=== PATIENT | female | born 1970 | race Caucasian/White ===

== ENCOUNTER 2016-10-27 12:42 | Emergency (ER) | payer BC ==
[2016-10-27] MEDS ORDERED: Albuterol/Ipratropium 3.0-0.5 MG/3 ML Neb Soln NEB ONE (13:00)
[2016-10-27] MEDS ORDERED: Sodium Chloride 0.9% 1,000 ML IV ONE (13:00)
--- NOTE | 2016-10-27 13:34 | EDM.PDOC ---
ED HISTORY OF PRESENT ILLNESS - General Chief Complaint: Respiratory Problem Stated Complaint: COUGH Time Seen by Provider: 10/27/16 12:55 Source of Information: Reports: Patient History Limitations: Reports: No limitations - History of Present Illness INITIAL COMMENTS - FREE TEXT/NARRATIVE: History of present illness: [36-year-old female coming in with a very complex history of complaining of coughing. Patient indicates she has some antibiotic nasal spray that causes discharged but now she is coughing to the point that it is making her vomit. She indicates the emesis is a mixture of this medicine as well as questionable sinus drainage. Patient says she can't take a deep breath or talk protectively without having personal coughing. Patient indicates she had long-term steroid treatment and that does have been discontinued and she feels this could be a rebound issue and was instructed by providers treating her the steroids to 4 to the ED if she should start having these type of symptoms.] Review of systems: As per history of present illness and below otherwise all systems reviewed and negative. Past medical history: As per history of present illness and as reviewed below otherwise noncontributory. Surgical history: As per history of present illness and as reviewed below otherwise noncontributory. Social history: No reported history of drug or alcohol abuse. Family history: As per history of present illness and as reviewed below otherwise noncontributory. Physical exam: HEENT: Atraumatic, normocephalic, pupils reactive, negative for conjunctival pallor or scleral icterus, mucous membranes moist, throat clear, neck supple, nontender, trachea midline. Lungs: Clear to auscultation but with poor air movement despite being equal bilaterally, chest nontender. Heart: S1S2, regular, negative for clicks, rubs, or JVD. Abdomen: Soft, nondistended, nontender. Negative for masses or hepatosplenomegaly. Negative for costovertebral tenderness. Pelvis: Stable nontender. Genitourinary: Deferred. Rectal: Deferred. Extremities: Atraumatic, negative for cords or calf pain. Neurovascular unremarkable. Neuro: Awake, alert, oriented. Cranial nerves II through XII unremarkable. Cerebellum unremarkable. Motor and sensory unremarkable throughout. Exam nonfocal. Patient unable to tolerate someone performing flu test on her and was unable to do it on herself declined testing indicating she did not feel she had the flu. Did have increased air movement after Duo-neb but did not have any coughing sensation patient indicates that she does not feel this is bronchitis and declines to be treated for bronchitis. Diagnostics: [Flu AB, chest x-ray] Therapeutics: [Duo neb] Impression: [Cough] Plan: [Tessaldaphne Werner followup with PCP] Definitive disposition and diagnosis as appropriate pending reevaluation and review of above. - Related Data Allergies/ADRs: Allergies Allergy/AdvReac Type Severity Reaction Status Date / Time acetaminophen Allergy Other Verified 10/27/16 13:05 ibuprofen Allergy Other Verified 10/27/16 13:05 Penicillins Allergy Anaphylactic Verified 10/27/16 12:54 Shock Home Meds: Home Meds Benzonatate [Tessalon Perles] 200 mg PO TID #45 cap 10/27/16 [Rx] Insulin Aspart [Novolog Flexpen] 1 dose SQ ASDIRECTED 10/27/16 [History] Insulin Glarg,Human.Rec.Analog [Lantus] 40 units SQ BEDTIME 10/27/16 [History] Minocycline [Minocin] 50 mg PO BID 10/27/16 [History] Topiramate [Trokendi Xr] 100 mg PO BID 10/27/16 [History] ED ROS GENERAL - Review of Systems Review Of Systems: See Below (See history of present illness) ED EXAM, GENERAL - Physical Exam Exam: See Below (History of present illness) Course - Vital Signs Last Recorded V/S: Last Vital Signs Temp 36.4 C 10/27/16 12:52 Pulse 80 10/27/16 14:47 Resp 20 10/27/16 14:47 BP 145/75 H 10/27/16 14:47 Pulse Ox 97 10/27/16 14:47 - Orders/Labs/Meds Orders: Active Orders 24 hr Category Date Time Status RT Aerosol Therapy [RC] ASDIRECTED Care 10/27/16 13:00 Active Chest 2V [CR] Stat Exams 10/27/16 13:00 Taken INFLUENZA A+B AG SCREEN [RM] Stat Lab 10/27/16 13:37 Uncollected Labs: Laboratory Tests 10/27/16 10/27/16 Range/Units 13:19 13:19 WBC 3.35 L (4.0-11.0) K/uL RBC 5.13 (4.30-5.90) M/uL Hgb 14.1 (12.0-16.0) g/dL Hct 43.6 (36.0-46.0) % MCV 85.0 (80.0-98.0) fL MCH 27.5 (27.0-32.0) pg MCHC 32.3 (31.0-37.0) g/dL RDW Std Deviation 40.7 (28.0-62.0) fl RDW Coeff of Angle 13 (11.0-15.0) % Plt Count 193 (150-400) K/uL MPV 10.40 (7.40-12.00) fL Neut % (Auto) 51.4 (48.0-80.0) % Lymph % (Auto) 32.8 (16.0-40.0) % [place] % (Auto) 12.2 (0.0-15.0) % Eos % (Auto) 2.4 (0.0-7.0) % Baso % (Auto) 1.2 (0.0-1.5) % Neut # (Auto) 1.7 (1.4-5.7) K/uL Lymph # (Auto) 1.1 (0.6-2.4) K/uL [place] # (Auto) 0.4 (0.0-0.8) K/uL Eos # (Auto) 0.1 (0.0-0.7) K/uL Baso # (Auto) 0.0 (0.0-0.1) K/uL Nucleated RBC % 0.0 /100WBC Nucleated RBCs # 0 K/uL Sodium 140 (136-146) mmol/L Potassium 4.1 (3.5-5.1) mmol/L Chloride 114 H (98-110) mmol/L Carbon Dioxide 18 L (21-31) mmol/L BUN 12 (6.0-23.0) mg/dL Creatinine 0.9 (0.6-1.5) mg/dL Est Cr Clr Drug Dosing 80.76 mL/min Estimated GFR (MDRD) > 60.0 ml/min Glucose 155 H (60-110) mg/dL Calcium 8.5 L (8.8-10.8) mg/dL Total Bilirubin 0.4 (0.1-1.5) mg/dL AST 15 (5-40) IU/L ALT 20 (8-54) IU/L Alkaline Phosphatase 97 (40-150) Total Protein 6.8 (6.0-8.0) g/dL Albumin 3.8 (3.5-5.0) g/dL Globulin 3.0 (2.0-3.5) g/dL Albumin/Globulin Ratio 1.3 (1.3-2.8) Meds: Medications Discontinued Medications Generic Name Dose Route Start Last Admin Trade Name Arlette PRN Reason Stop Dose Admin Albuterol/Ipratropium 3 ml 10/27/16 13:00 10/27/16 13:25 Duoneb 3.0-0.5 Mg/3 Ml NEB 10/27/16 13:01 3 ml ONETIME ONE Administration Sodium Chloride 1,000 mls @ 999 mls/hr 10/27/16 13:00 10/27/16 13:46 Normal Saline IV 10/27/16 14:00 999 mls/hr STAT ONE Administration Departure - Departure Time of Disposition: 15:40 Disposition: Home, Self-Care 01 Condition: good Clinical Impression: Cough Referrals: PCP,None [Primary Care Provider] - Yanni Crawford PA [Physician [employer] Systems Engineer] - Forms: ED Department Discharge Additional Instructions: The following information is given to patients seen in the emergency department who are being discharged to home. This information is to outline your options for follow-up care. We provide all patients seen in our emergency department with a follow-up referral. The need for follow-up, as well as the timing and circumstances, are variable depending upon the specifics of your emergency department visit. If you don't have a primary care physician on staff, we will provide you with a referral. We always advise you to contact your personal physician following an emergency department visit to inform them of the circumstance of the visit and for follow-up with them and/or the need for any referrals to a consulting specialist. The emergency department will also refer you to a specialist when appropriate. This referral assures that you have the opportunity for follow-up care with a specialist. All of these measure are taken in an effort to provide you with optimal care, which includes your follow-up. Under all circumstances we always encourage you to contact your private physician who remains a resource for coordinating your care. When calling for follow-up care, please make the office aware that this follow-up is from your recent emergency room visit. If for any reason you are refused follow-up, please contact the [facility] Emergency Department at and asked to speak to the emergency department charge nurse. Take medication as directed Followup with primary care provider as discussed Return to ED as needed as discussed - My Orders Last 24 Hours: My Active Orders 10/27/16 13:00 RT Aerosol Therapy [RC] ASDIRECTED Chest 2V [CR] Stat 10/27/16 13:37 INFLUENZA A+B AG SCREEN [RM] Stat - Assessment/Plan Last 24 Hours: My Active Orders 10/27/16 13:00 RT Aerosol Therapy [RC] ASDIRECTED Chest 2V [CR] Stat 10/27/16 13:37 INFLUENZA A+B AG SCREEN [RM] Stat
[2016-10-27 13:51] LABS: CHLORIDE,CL 114 mmol/L (98-110); SODIUM,NA 140 mmol/L (136-146)
[2016-10-27 16:25] VITALS: BP 148/86
--- NOTE | 2016-10-27 16:32 | CR ---
EXAM DATE: 10/27/16 PATIENT'S AGE: 46 Patient: WINTER REES Facility: [place], [place] Site . Site : 1970 Study: XRay Chest [id number]/10/2017 2:04:10 PM Ordering Physician: Doctor Stanton Final Report: INDICATION: Started coughing up fluid 3 days ago, had shortness of breath. Believes it could be a result of steroids she has been taking. CHEST, PA AND LATERAL Upright PA and lateral radiographs of the chest were performed. Comparison: No previous studies are currently available for comparison. The lungs appear clear and there are no pleural effusions. Heart size and pulmonary vasculature appear normal. Visualized bones show no significant findings. IMPRESSION: No acute intrathoracic abnormality identified. ROSSI ZAPIEN MD [employer] Dictated by: Carlos Zapien MD @ 10/27/2016 14:27:53 (Electronic Signature) Report Signed by Proxy and Original Signed Document filed in the Medical Record. MTDD
== END 2016-10-27 16:22 | disposition home or self-care (01) ==
LOC: MW.ED 12:42
DX: R05 Cough (principal)
CPT/HCPCS: 36415; 71020; 80053; 85025; 94664; 96360; 99285; J7040; 99284

== ENCOUNTER → 2016-11-12 | Outpatient (CLI) | payer BC ==
--- NOTE | 2016-11-12 17:34 | CT ---
EXAM DATE: 11/12/16 PATIENT'S AGE: 46 Patient: WINTER REES Facility: [place], [place] Site . Site : 1970 Study: CT Facial [id number]/26/2017 2:43:57 PM Ordering Physician: Kym Banda Final Report: INDICATION: chronic sinusitis CT FACE/SINUSES WITHOUT CONTRAST TECHNIQUE: Multidetector axial CT imaging was performed through the face and paranasal sinuses without contrast. Coronal and sagittal reconstructions were also generated. FINDINGS: There are postoperative defects in the medial carrillo of the maxillary sinuses bilaterally and there have been previous bilateral partial ethmoidectomies. There is moderate mucosal thickening in the maxillary sinuses bilaterally, greatest inferiorly, and a question of a small amount of posteriorly layering fluid in the maxillary sinuses, consistent with sinusitis. The other paranasal sinuses appear normally aerated. No significant deviation of the nasal septum is noted. No bony erosions or fractures are identified. The orbits and their contents are unremarkable. Temporomandibular joints and included mandible are within normal limits. Mastoid air cells are normally aerated. IMPRESSION: 1. Postoperative changes in the paranasal sinuses including defects in the medial carrillo of the maxillary sinuses and previous partial ethmoidectomies. 2. Bilateral maxillary sinusitis. ROSSI ZAPIEN MD [employer] Dictated by Carlos Zapien MD @ 11/12/2016 3:05:52 PM Dictated by: Carlos Zapien MD @ 11/12/2016 15:06:10 (Electronic Signature) Report Signed by Proxy and Original Signed Document filed in the Medical Record. [facility]
== END ==
LOC: MW.DI 14:16
PROVIDERS: ATTEND Nurse Practitioner Family
DX: J32.9 Chronic sinusitis, unspecified (principal); Z98.890 Other specified postprocedural states; J32.0 Chronic maxillary sinusitis
CPT/HCPCS: 70486; 70486-26

== ENCOUNTER → 2016-11-20 | Outpatient (CLI) | payer BC ==
--- NOTE | 2016-11-20 15:49 | CR ---
EXAMINATION: Right calcaneus HISTORY: Pain COMPARISON: None TECHNIQUE: 2 views FINDINGS/IMPRESSION: There is no acute osseous abnormality, dislocation, or fracture. Bone mineraliz ation and joint spaces appear preserved. There is a prominent fused os trigonum which could suggest posterior impingement. Small Achilles insertional enthesophyte.
== END | disposition home or self-care (01) ==
LOC: MW.CHFP 13:23
PROVIDERS: ATTEND Nurse Practitioner Family
DX: M79.671 Pain in right foot (principal); Q68.8 Other specified congenital musculoskeletal deformities; M77.51 Other enthesopathy of right foot and ankle
CPT/HCPCS: 73650-26-RT; 73650-RT

== ENCOUNTER 2019-03-26 21:17 | Observation (INO) | payer BC ==
[2019-03-26] MEDS ORDERED: Sodium Chloride 0.9% 10 ML Syringe FLUSH PRN (21:19)
[2019-03-26] MEDS ORDERED: Sodium Chloride 0.9% 2.5 ML Syringe FLUSH PRN (21:19)
[2019-03-26] MEDS ORDERED: Ondansetron 4 MG/2 ML SDV IVPUSH ONE (21:40)
[2019-03-26] MEDS ORDERED: Sodium Chloride 0.9% 1,000 ML IV ONE (21:40)
--- NOTE | 2019-03-26 21:40 | EDM.PDOC ---
ED HPI GENERAL MEDICAL PROBLEM - General Chief Complaint: Abdominal Pain Stated Complaint: ABD PAIN Time Seen by Provider: 03/26/19 21:29 Source of Information: Reports: Patient History Limitations: Reports: No Limitations - History of Present Illness INITIAL COMMENTS - FREE TEXT/NARRATIVE: HISTORY AND PHYSICAL: History of present illness: Patient is a 49-year-old female who presents to the emergency room with complaints of upper abdominal pain, right sided flank pain, nausea, vomiting and white colored stools. She states last evening she noticed some abdominal pain that has progressively gotten worse. This morning she started to develop nausea which has now progressed to vomiting. This evening she has had white colored stools (otherwise normal consistency). She has had a cholecystectomy. States when the procedure was done with a "nicked my pancreas" and is concerned she may have pancreatitis. Denies any previous history of hepatitis, alcohol use or drug abuse. Patient denies any fever, chills, headache, change in vision, syncope or near syncope. Denies any chest pain, back pain, shortness of breath or cough. Denies any diarrhea, constipation or dysuria. Has not noted any blood in urine or stool. Patient has been eating and drinking appropriately. Review of systems: As per history of present illness and below otherwise all systems reviewed and negative. Past medical history: As per history of present illness and as reviewed below otherwise noncontributory. Surgical history: As per history of present illness and as reviewed below otherwise noncontributory. Social history: See social history for further information Family history: As per history of present illness and as reviewed below otherwise noncontributory. Physical exam: General: Well-developed and well-nourished 49-year-old female. Alert and oriented. Nontoxic appearing and in no acute distress. HEENT: Atraumatic, normocephalic, pupils equal and reactive bilaterally, negative for conjunctival pallor or scleral icterus, mucous membranes moist, trachea midline. No drooling or trismus noted. No meningeal signs. No hot potato voice noted. Lungs: Clear to auscultation, breath sounds equal bilaterally, chest nontender. Heart: S1S2, regular rate and rhythm without overt murmur Abdomen: Soft, slightly distended, tenderness to the right upper and left upper quadrants. Negative for masses or hepatosplenomegaly. Right sided costovertebral tenderness. Pelvis: Stable nontender. Skin: Intact, warm, dry. No lesions or rashes noted. Extremities: Atraumatic, moves all extremities per self without difficulty or deficits, negative for cords or calf pain. Neurovascular unremarkable. Neuro: Awake, alert, oriented. Cranial nerves II through XII unremarkable. Cerebellum unremarkable. Motor and sensory unremarkable throughout. Exam nonfocal. Notes: Patient's urine does show a UTI. She has allergies to penicillin, therefore gave Cipro IV. Ultrasound shows cholecystectomy. No bile duct dilation. Patient continues to have the flank pain. Vital signs remain stable. Dr. Massey, hospitalist, was consulted on this case is agreeable to admit this patient to observation for further care and management. Patient is aware of diagnostics and agreeable for admission. We'll continue to monitor. Diagnostics: CBC, CMP, Lipase, UA, US abd/pelvis Therapeutics: IV fluids, Zofran Impression: Pyelonephritis Plan: Observation admission Definitive disposition and diagnosis as appropriate pending reevaluation and review of above. Abdomen Pain Score (Numeric/FACES): 8 - Related Data Allergies Allergy/AdvReac Type Severity Reaction Status Date / Time acetaminophen Allergy Other Verified 03/26/19 21:25 ibuprofen Allergy Other Verified 03/26/19 21:25 mushroom Allergy Hives Verified 03/26/19 21:25 Penicillins Allergy Anaphylactic Verified 03/26/19 21:25 Shock Home Meds: Home Meds Celecoxib [CeleBREX] 200 mg PO DAILY 03/26/19 [History] Insulin Glarg,Human.Rec.Analog [Lantus Solostar] 40 units SQ DAILY 03/26/19 [ History] Insulin Glulisine [Apidra Solostar] 8 - 14 unit SQ TID 03/26/19 [History] Lisinopril 1 tab PO DAILY 03/26/19 [History] atorvaSTATin [Lipitor] 10 mg PO BEDTIME 03/26/19 [History] Past Medical History HEENT History: Reports: None Cardiovascular History: Reports: None Respiratory History: Reports: None Gastrointestinal History: Reports: Cholelithiasis, Pancreatitis Genitourinary History: Reports: None 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: Musculoskeletal History: Reports: None Neurological History: Reports: Migraines Psychiatric History: Reports: None Endocrine/Metabolic History: Reports: Diabetes, Type I Other Endocrine/Metabolic History: chemically induced diabetes Hematologic History: Reports: None Immunologic History: Reports: None Oncologic (Cancer) History: Reports: None Dermatologic History: Reports: None - Infectious Disease History Infectious Disease History: Reports: None - Past Surgical History HEENT Surgical History: Reports: Myringotomy w Tube(s) GI Surgical History: Reports: Cholecystectomy Female Surgical History: Reports: None Social & Family History - Family History Family Medical History: Noncontributory - Tobacco Use Smoking Status *Q: Never Smoker - Caffeine Use Caffeine Use: Reports: Coffee - Recreational Drug Use Recreational Drug Use: No ED ROS GENERAL - Review of Systems Review Of Systems: ROS reveals no pertinent complaints other than HPI. ED EXAM, GI/ABD - Physical Exam Exam: See Below (See dictation) Course - Vital Signs Last Recorded V/S: Last Vital Signs Temp 97 F 03/26/19 21:25 Pulse 86 03/26/19 23:28 Resp 16 03/26/19 23:28 BP 156/80 H 03/26/19 22:36 Pulse Ox 92 L 03/26/19 23:28 - Orders/Labs/Meds Orders: Active Orders 24 hr Category Date Time Status Admission Status [Patient Status] [ADT] Stat ADT 03/26/19 23:33 Ordered CULTURE URINE [RM] Stat Lab 03/26/19 21:43 Received Sodium Chloride 0.9% [Saline Flush] Med 03/26/19 21:19 Active 10 ml FLUSH ASDIRECTED PRN Sodium Chloride 0.9% [Saline Flush] Med 03/26/19 21:19 Active 2.5 ml FLUSH ASDIRECTED PRN Saline Lock Insert [OM.PC] Stat Oth 03/26/19 21:19 Ordered Medication Orders Sodium Chloride (Saline Flush) 10 ml FLUSH ASDIRECTED PRN PRN Reason: Keep Vein Open Last Admin: 03/26/19 21:49 Dose: 10 ml Sodium Chloride (Saline Flush) 2.5 ml FLUSH ASDIRECTED PRN PRN Reason: Keep Vein Open Last Admin: 03/26/19 21:50 Dose: 2.5 ml Labs: Laboratory Tests 03/26/19 03/26/19 03/26/19 Range/Units 21:40 21:40 21:43 WBC 8.81 (4.0-11.0) K/uL RBC 4.76 (4.30-5.90) M/uL Hgb 13.4 (12.0-16.0) g/dL Hct 40.9 (36.0-46.0) % MCV 85.9 (80.0-98.0) fL MCH 28.2 (27.0-32.0) pg MCHC 32.8 (31.0-37.0) g/dL RDW Std Deviation 42.8 (28.0-62.0) fl RDW Coeff of Angle 14 (11.0-15.0) % Plt Count 218 (150-400) K/uL MPV 10.70 (7.40-12.00) fL Neut % (Auto) 67.5 (48.0-80.0) % Lymph % (Auto) 22.1 (16.0-40.0) % [place] % (Auto) 7.9 (0.0-15.0) % Eos % (Auto) 2.0 (0.0-7.0) % Baso % (Auto) 0.5 (0.0-1.5) % Neut # (Auto) 5.9 H (1.4-5.7) K/uL Lymph # (Auto) 2.0 (0.6-2.4) K/uL [place] # (Auto) 0.7 (0.0-0.8) K/uL Eos # (Auto) 0.2 (0.0-0.7) K/uL Baso # (Auto) 0.0 (0.0-0.1) K/uL Nucleated RBC % 0.0 /100WBC Nucleated RBCs # 0 K/uL Sodium 144 (136-145) mmol/L Potassium 3.9 (3.5-5.1) mmol/L Chloride 108 H (98-107) mmol/L Carbon Dioxide 29.0 (21.0-32.0) mmol/L BUN 13 (7.0-18.0) mg/dL Creatinine 1.0 (0.6-1.0) mg/dL Est Cr Clr Drug Dosing 70.34 mL/min Estimated GFR (MDRD) 58.7 ml/min Glucose 185 H (74-106) mg/dL Calcium 9.3 (8.5-10.1) mg/dL Total Bilirubin 0.2 (0.2-1.0) mg/dL AST 11 L (15-37) IU/L ALT 26 (14-63) IU/L Alkaline Phosphatase 86 (46-116) U/L Total Protein 6.0 L (6.4-8.2) g/dL Albumin 3.2 L (3.4-5.0) g/dL Globulin 2.8 (2.6-4.0) g/dL Albumin/Globulin Ratio 1.1 (0.9-1.6) Lipase 57 L (73-393) U/L Urine Color YELLOW Urine Appearance CLOUDY Urine pH 5.5 (5.0-8.0) Ur Specific [place] >= 1.030 (1.001-1.035) Urine Protein 30 H (NEGATIVE) mg/dL Urine Glucose (UA) 100 H (NEGATIVE) mg/dL Urine Ketones TRACE H (NEGATIVE) mg/dL Urine Occult Blood LARGE H (NEGATIVE) Urine Nitrite POSITIVE H (NEGATIVE) Urine Bilirubin NEGATIVE (NEGATIVE) Urine Urobilinogen 0.2 (<2.0) EU/dL Ur Leukocyte Esterase TRACE H (NEGATIVE) Urine RBC 10-15 (0-2/HPF) Urine WBC 14-20 (0-5/HPF) Ur Epithelial Cells MODERATE (NONE-FEW) Calcium Oxalate Crystal MANY (NEGATIVE) Urine Bacteria 2+ H (NEGATIVE) Urine Mucus LIGHT (NONE-MOD) Meds: Medications Generic Name Dose Route Start Last Admin Trade Name Freamanda PRN Reason Stop Dose Admin Sodium Chloride 10 ml 03/26/19 21:19 03/26/19 21:49 Saline Flush FLUSH 10 ml ASDIRECTED PRN Administration Keep Vein Open Sodium Chloride 2.5 ml 03/26/19 21:19 03/26/19 21:50 Saline Flush FLUSH 2.5 ml ASDIRECTED PRN Administration Keep Vein Open Discontinued Medications Generic Name Dose Route Start Last Admin Trade Name Freq PRN Reason Stop Dose Admin Sodium Chloride 1,000 mls @ 999 mls/hr 03/26/19 21:40 03/26/19 21:49 Normal Saline IV 03/26/19 22:40 999 mls/hr STAT ONE Administration Ciprofloxacin/Dextrose 400 mg/ 200 mls @ 200 mls/hr 03/26/19 22:25 03/26/19 22:37 Premix IV 03/26/19 23:24 200 mls/hr NOW STA Administration Morphine Sulfate 2 mg 03/26/19 22:42 03/26/19 22:45 Morphine IVPUSH 03/26/19 22:43 2 mg ONETIME ONE Administration Ondansetron HCl 4 mg 03/26/19 21:40 03/26/19 21:49 Zofran IVPUSH 03/26/19 21:41 4 mg ONETIME ONE Administration Departure - Departure Time of Disposition: 23:35 Disposition: Refer to Observation Clinical Impression: Pyelonephritis - Discharge Information Referrals: Shannan Rothmna DO [Primary Care Provider] - Forms: ED Department Discharge - My Orders Last 24 Hours: My Active Orders 03/26/19 21:19 Sodium Chloride 0.9% [Saline Flush] 10 ml FLUSH ASDIRECTED PRN Sodium Chloride 0.9% [Saline Flush] 2.5 ml FLUSH ASDIRECTED PRN Saline Lock Insert [OM.PC] Stat 03/26/19 21:43 CULTURE URINE [RM] Stat 03/26/19 23:33 Admission Status [Patient Status] [ADT] Stat - Assessment/Plan Last 24 Hours: My Active Orders 03/26/19 21:19 Sodium Chloride 0.9% [Saline Flush] 10 ml FLUSH ASDIRECTED PRN Sodium Chloride 0.9% [Saline Flush] 2.5 ml FLUSH ASDIRECTED PRN Saline Lock Insert [OM.PC] Stat 03/26/19 21:43 CULTURE URINE [RM] Stat 03/26/19 23:33 Admission Status [Patient Status] [ADT] Stat
[2019-03-26 22:08] LABS: POTASSIUM,K 3.9 mmol/L (3.5-5.1)
[2019-03-26] MEDS ORDERED: Ciprofloxacin in D5W 400 MG in Premix Bag 1 BAG IV STA ×2 (22:25)
[2019-03-26] MEDS ORDERED: Morphine 2 MG/ML Syringe IVPUSH ONE (22:42)
--- NOTE | 2019-03-26 23:19 | US ---
INDICATION: Pain. TECHNIQUE: Transabdominal imaging with attention to the right upper quadrant. COMPARISON: None. FINDINGS: Pancreas obscured by bowel gas. Right kidney is normal size. No hydronephrosis. Visualized portions of the liver are unremarkable. Gallbladder is not visualized consistent with the patient`s history of a cholecystectomy. No abnormal bile duct dilatation. The CBD measures 3 mm. IMPRESSION: 1. Cholecystectomy. 2. No bile duct dilatation. Dictated by Raman Porter MD @ 03/26/2019 11:17:00 PM Dictated by: Raman Porter MD @ 03/26/2019 23:17:29 (Electronically Signed)
[2019-03-27] MEDS ORDERED: 50% Dextrose in Water 50 ML Syringe IVPUSH ONE (00:39)
[2019-03-27] MEDS ORDERED: Sodium Chloride 0.9% 1,000 ML IV SCH (03:30)
--- NOTE | 2019-03-27 08:32 | PCM.HP.2 ---
<Shannan Rothman - Last Filed: 03/27/19 10:05> H&P History of Present Illness - General Date of Service: 03/27/19 Admit Problem/Dx: Admission Diagnosis/Problem Admission Diagnosis/Problem Pyelonephritis - History of Present Illness Initial Comments - Free Text/Narative: The patient is a 49-year-old female presented to the ER last night with right upper quadrant and right flank pain. She had associated nausea, vomiting and has had intermittent loose stools. Reports her stools are white in color. She reports she's felt ill for the past few weeks, but denies fever, chills, chest pain, shortness of breath. She said she's had back pain that she thought was a kidney infection last week. She drank cranberry juice and that feeling when away. She denies any burning with urination, increased frequency or urgency. She reports trouble with a gnawing feeling in her abdomen and bloating after meals. She reports she was tested for H. pylori, which was negative. Based on chart review that was back in 2018. She has been prescribed omeprazole, but doesn't like the way it makes her feel. She has been using Tums and Rolaids instead. She reports that she's had decreased appetite and hasn't been using as much insulin because of it. She is a type I diabetic. In the ER, lab work showed no significant abnormalities. A UA did show signs of infection. Ultrasound of the abdomen is negative for any acute findings. She was given Zofran, IV fluids and started on Cipro for presumed pyelonephritis. In the ER, the patient had a glucose of 28, but was alert and oriented. She refused an amp of D50. She checked her own monitor and reports her blood sugar was 48 and improved to 68 after orange juice and a sandwich. She reports her blood sugar was low because she had just eaten given herself 3 units of insulin and then vomited up her meal. Abdomen Pain Score (Numeric/FACES): 5 - Related Data Allergies/Adverse Reactions: Allergies Allergy/AdvReac Type Severity Reaction Status Date / Time acetaminophen Allergy Other Verified 03/27/19 01:57 ibuprofen Allergy Other Verified 03/27/19 01:57 mushroom Allergy Hives Verified 03/27/19 01:57 oxymetazoline Allergy Anaphylactic Verified 03/27/19 01:57 [From Afrin (oxymetazoline)] Shock Penicillins Allergy Anaphylactic Verified 03/27/19 01:57 Shock Home Medications: Home Meds Celecoxib [CeleBREX] 200 mg PO DAILY 03/26/19 [History] Insulin Glarg,Human.Rec.Analog [Lantus Solostar] 45 units SQ DAILY 03/26/19 [ History] Insulin Glulisine [Apidra Solostar] 8 - 14 unit SQ TID 03/26/19 [History] Lisinopril 1 tab PO DAILY 03/26/19 [History] atorvaSTATin [Lipitor] 10 mg PO BEDTIME 03/26/19 [History] Ciprofloxacin/Ciprofloxa HCl [Ciprofloxacin ER] 500 mg PO DAILY 3 Days #3 tbmp.24hr 03/27/19 [Rx] Past Medical History HEENT History: Reports: None Cardiovascular History: Reports: None Respiratory History: Reports: None Gastrointestinal History: Reports: Cholelithiasis, Pancreatitis Genitourinary History: Reports: None [employer] History: Reports: Musculoskeletal History: Reports: None Neurological History: Reports: Migraines Psychiatric History: Reports: None Endocrine/Metabolic History: Reports: Diabetes, Type I Other Endocrine/Metabolic History: chemically induced diabetes Hematologic History: Reports: None Immunologic History: Reports: None Oncologic (Cancer) History: Reports: None Dermatologic History: Reports: None - Infectious Disease History Infectious Disease History: Reports: None - Past Surgical History HEENT Surgical History: Reports: Myringotomy w Tube(s) GI Surgical History: Reports: Cholecystectomy Female Surgical History: Reports: None Social & Family History - Family History Family Medical History: Noncontributory - Tobacco Use Smoking Status *Q: Never Smoker Second Hand Smoke Exposure: No - Caffeine Use Caffeine Use: Reports: Coffee, Tea - Recreational Drug Use Recreational Drug Use: No H&P Review of Systems - Review of Systems: Review Of Systems: See Below General: Reports: Decreased Appetite. Denies: Fever, Chills HEENT: Reports: No Symptoms Pulmonary: Reports: No Symptoms Cardiovascular: Reports: No Symptoms Gastrointestinal: Reports: Abdominal Pain, Diarrhea, Nausea, Vomiting Genitourinary: Reports: Flank Pain. Denies: Dysuria, Frequency, Burning Musculoskeletal: Reports: Back Pain Skin: Reports: No Symptoms Psychiatric: Reports: No Symptoms Neurological: Reports: No Symptoms Hematologic/Lymphatic: Reports: No Symptoms Immunologic: Reports: No Symptoms Exam - Exam Exam: See Below - Vital Signs Vital Signs: Last Vital Signs Temp 97.0 F 03/27/19 07:54 Pulse 79 03/27/19 07:54 Resp 17 03/27/19 07:54 BP 127/60 03/27/19 07:54 Pulse Ox 96 03/27/19 07:54 Weight: 120.701 kg - Exam General: Alert, Oriented, Cooperative HEENT: Conjunctiva Clear, EOMI, Mucosa Moist & [place], Posterior Pharynx Clear, Pupils Equal, Pupils Reactive Neck: Supple, Trachea Midline Lungs: Clear to Auscultation, Normal Respiratory Effort Cardiovascular: Regular Rate, Regular Rhythm GI/Abdominal Exam: Normal Bowel Sounds, Soft, Tender (epigastric and LLQ) Back Exam: CVA Tenderness (L), CVA Tenderness (R) Extremities: No Pedal Edema Skin: Warm, Dry, Intact Neuro Extensive - Mental Status: Alert, Oriented x3 Psychiatric: Alert, Normal Affect, Normal Mood - Patient Data Lab Results Last 24 hrs: Laboratory Results - last 24 hr 03/26/19 03/26/19 03/26/19 Range/Units 21:40 21:40 21:43 WBC 8.81 (4.0-11.0) K/uL RBC 4.76 (4.30-5.90) M/uL Hgb 13.4 (12.0-16.0) g/dL Hct 40.9 (36.0-46.0) % MCV 85.9 (80.0-98.0) fL MCH 28.2 (27.0-32.0) pg MCHC 32.8 (31.0-37.0) g/dL RDW Std Deviation 42.8 (28.0-62.0) fl RDW Coeff of Angle 14 (11.0-15.0) % Plt Count 218 (150-400) K/uL MPV 10.70 (7.40-12.00) fL Neut % (Auto) 67.5 (48.0-80.0) % Lymph % (Auto) 22.1 (16.0-40.0) % [place] % (Auto) 7.9 (0.0-15.0) % Eos % (Auto) 2.0 (0.0-7.0) % Baso % (Auto) 0.5 (0.0-1.5) % Neut # (Auto) 5.9 H (1.4-5.7) K/uL Lymph # (Auto) 2.0 (0.6-2.4) K/uL [place] # (Auto) 0.7 (0.0-0.8) K/uL Eos # (Auto) 0.2 (0.0-0.7) K/uL Baso # (Auto) 0.0 (0.0-0.1) K/uL Nucleated RBC % 0.0 /100WBC Nucleated RBCs # 0 K/uL Sodium 144 (136-145) mmol/L Potassium 3.9 (3.5-5.1) mmol/L Chloride 108 H (98-107) mmol/L Carbon Dioxide 29.0 (21.0-32.0) mmol/L BUN 13 (7.0-18.0) mg/dL Creatinine 1.0 (0.6-1.0) mg/dL Est Cr Clr Drug Dosing 70.34 mL/min Estimated GFR (MDRD) 58.7 ml/min Glucose 185 H (74-106) mg/dL POC Glucose (60-110) mg/dL Calcium 9.3 (8.5-10.1) mg/dL Total Bilirubin 0.2 (0.2-1.0) mg/dL AST 11 L (15-37) IU/L ALT 26 (14-63) IU/L Alkaline Phosphatase 86 (46-116) U/L Total Protein 6.0 L (6.4-8.2) g/dL Albumin 3.2 L (3.4-5.0) g/dL Globulin 2.8 (2.6-4.0) g/dL Albumin/Globulin Ratio 1.1 (0.9-1.6) Lipase 57 L (73-393) U/L Urine Color YELLOW Urine Appearance CLOUDY Urine pH 5.5 (5.0-8.0) Ur Specific [place] >= 1.030 (1.001-1.035) Urine Protein 30 H (NEGATIVE) mg/dL Urine Glucose (UA) 100 H (NEGATIVE) mg/dL Urine Ketones TRACE H (NEGATIVE) mg/dL Urine Occult Blood LARGE H (NEGATIVE) Urine Nitrite POSITIVE H (NEGATIVE) Urine Bilirubin NEGATIVE (NEGATIVE) Urine Urobilinogen 0.2 (<2.0) EU/dL Ur Leukocyte Esterase TRACE H (NEGATIVE) Urine RBC 10-15 (0-2/HPF) Urine WBC 14-20 (0-5/HPF) Ur Epithelial Cells MODERATE (NONE-FEW) Calcium Oxalate Crystal MANY (NEGATIVE) Urine Bacteria 2+ H (NEGATIVE) Urine Mucus LIGHT (NONE-MOD) 03/27/19 03/27/19 03/27/19 Range/Units 00:45 02:22 06:08 WBC (4.0-11.0) K/uL RBC (4.30-5.90) M/uL Hgb (12.0-16.0) g/dL Hct (36.0-46.0) % MCV (80.0-98.0) fL MCH (27.0-32.0) pg MCHC (31.0-37.0) g/dL RDW Std Deviation (28.0-62.0) fl RDW Coeff of Angle (11.0-15.0) % Plt Count (150-400) K/uL MPV (7.40-12.00) fL Neut % (Auto) (48.0-80.0) % Lymph % (Auto) (16.0-40.0) % [place] % (Auto) (0.0-15.0) % Eos % (Auto) (0.0-7.0) % Baso % (Auto) (0.0-1.5) % Neut # (Auto) (1.4-5.7) K/uL Lymph # (Auto) (0.6-2.4) K/uL [place] # (Auto) (0.0-0.8) K/uL Eos # (Auto) (0.0-0.7) K/uL Baso # (Auto) (0.0-0.1) K/uL Nucleated RBC % /100WBC Nucleated RBCs # K/uL Sodium (136-145) mmol/L Potassium (3.5-5.1) mmol/L Chloride (98-107) mmol/L Carbon Dioxide (21.0-32.0) mmol/L BUN (7.0-18.0) mg/dL Creatinine (0.6-1.0) mg/dL Est Cr Clr Drug Dosing mL/min Estimated GFR (MDRD) ml/min Glucose (74-106) mg/dL POC Glucose 28 L 85 139 H (60-110) mg/dL Calcium (8.5-10.1) mg/dL Total Bilirubin (0.2-1.0) mg/dL AST (15-37) IU/L ALT (14-63) IU/L Alkaline Phosphatase (46-116) U/L Total Protein (6.4-8.2) g/dL Albumin (3.4-5.0) g/dL Globulin (2.6-4.0) g/dL Albumin/Globulin Ratio (0.9-1.6) Lipase (73-393) U/L Urine Color Urine Appearance Urine pH (5.0-8.0) Ur Specific [place] (1.001-1.035) Urine Protein (NEGATIVE) mg/dL Urine Glucose (UA) (NEGATIVE) mg/dL Urine Ketones (NEGATIVE) mg/dL Urine Occult Blood (NEGATIVE) Urine Nitrite (NEGATIVE) Urine Bilirubin (NEGATIVE) Urine Urobilinogen (<2.0) EU/dL Ur Leukocyte Esterase (NEGATIVE) Urine RBC (0-2/HPF) Urine WBC (0-5/HPF) Ur Epithelial Cells (NONE-FEW) Calcium Oxalate Crystal (NEGATIVE) Urine Bacteria (NEGATIVE) Urine Mucus (NONE-MOD) Result Diagrams: 03/26/19 21:40 03/26/19 21:40 Problem List Initiated/Reviewed/Updated: Yes Orders Last 24hrs: Active Orders 24 hr Category Date Time Status Admission Status [Patient Status] [ADT] Stat ADT 03/26/19 23:33 Active ADA Diabetic [[place] [employer] Diet] [DIET Diet 03/27/19 Breakfast Active ] CULTURE URINE [RM] Stat Lab 03/26/19 21:43 Received Celecoxib [CeleBREX] Med 03/27/19 09:00 Active 200 mg PO DAILY Lisinopril [Prinivil] Med 03/27/19 09:00 Active 5 mg PO DAILY Sodium Chloride 0.9% [Normal Saline] 1,000 ml Med 03/27/19 03:30 Active IV ASDIRECTED Sodium Chloride 0.9% [Saline Flush] Med 03/26/19 21:19 Active 10 ml FLUSH ASDIRECTED PRN Sodium Chloride 0.9% [Saline Flush] Med 03/26/19 21:19 Active 2.5 ml FLUSH ASDIRECTED PRN atorvaSTATin [Lipitor] Med 03/27/19 21:00 Active 10 mg PO BEDTIME Saline Lock Insert [OM.PC] Stat Oth 03/26/19 21:19 Ordered Medication Orders Atorvastatin Calcium (Lipitor) 10 mg PO BEDTIME [facility] Celecoxib (Celebrex) 200 mg PO DAILY [facility] Sodium Chloride (Normal Saline) 1,000 mls @ 75 mls/hr IV ASDIRECTED [facility] Last Admin: 03/27/19 03:46 Dose: 75 mls/hr Lisinopril (Prinivil) 5 mg PO DAILY [facility] Sodium Chloride (Saline Flush) 10 ml FLUSH ASDIRECTED PRN PRN Reason: Keep Vein Open Last Admin: 03/26/19 21:49 Dose: 10 ml Sodium Chloride (Saline Flush) 2.5 ml FLUSH ASDIRECTED PRN PRN Reason: Keep Vein Open Last Admin: 03/26/19 21:50 Dose: 2.5 ml Assessment/Plan Comment:: 1. Admit for observation 2. Code status- Full 3. Vitals per routine 4. I/Os per routine 5. Diet- Diabetic 6.DVT prophylaxis with SCDs 7 UTI-, no signs of pyelonephritis- no white count and no stranding seen on imaging. Continue Cipro. Urine culture pending. 8. Chronic gnawing abdominal pain and bloating after meals- patient wants referral to GI specialist, will refer to GI in [place] 9. DMI with concern for hypoglycemia- accuchecks, home insulin regiment. The patient was admitted overnight and started on IV Cipro for UTI, her blood sugars were monitored and she didn't have any hypoglycemic episodes. She does have chronic GI issues and wants referral to GI specialist in [place]. By day of discharge patient stated she wanted to go home. Patient will be discharged home on home meds plus oral Cipro. Urine culture pending at time of discharge. May resume diabetic diet, activity as tolerated, continue to closely monitor blood sugars. Symptoms to report to physician include fever/chills, chest pain, shortness of breath, abdominal pain, low blood sugars, erythema, discharge, or not improving as expected. Follow up with PCP and GI specialist. <Leonardo Massey - Last Filed: 03/27/19 11:13> H&P History of Present Illness - General Admit Problem/Dx: Admission Diagnosis/Problem Admission Diagnosis/Problem Pyelonephritis I have seen and examined the patient independently of medical anthropology director, Dr. Lorna DO. I have reviewed and agree with the plan of care as outlined for this patient by her. I have discussed the case with her. Please see orders. Exam - Vital Signs Vital Signs: Last Vital Signs Temp 36.1 C 03/27/19 07:54 Pulse 79 03/27/19 07:54 Resp 17 03/27/19 07:54 BP 127/60 03/27/19 09:24 Pulse Ox 96 03/27/19 07:54 - Patient Data Lab Results Last 24 hrs: Laboratory Results - last 24 hr 03/26/19 03/26/19 03/26/19 Range/Units 21:40 21:40 21:43 WBC 8.81 (4.0-11.0) K/uL RBC 4.76 (4.30-5.90) M/uL Hgb 13.4 (12.0-16.0) g/dL Hct 40.9 (36.0-46.0) % MCV 85.9 (80.0-98.0) fL MCH 28.2 (27.0-32.0) pg MCHC 32.8 (31.0-37.0) g/dL RDW Std Deviation 42.8 (28.0-62.0) fl RDW Coeff of Angle 14 (11.0-15.0) % Plt Count 218 (150-400) K/uL MPV 10.70 (7.40-12.00) fL Neut % (Auto) 67.5 (48.0-80.0) % Lymph % (Auto) 22.1 (16.0-40.0) % [place] % (Auto) 7.9 (0.0-15.0) % Eos % (Auto) 2.0 (0.0-7.0) % Baso % (Auto) 0.5 (0.0-1.5) % Neut # (Auto) 5.9 H (1.4-5.7) K/uL Lymph # (Auto) 2.0 (0.6-2.4) K/uL [place] # (Auto) 0.7 (0.0-0.8) K/uL Eos # (Auto) 0.2 (0.0-0.7) K/uL Baso # (Auto) 0.0 (0.0-0.1) K/uL Nucleated RBC % 0.0 /100WBC Nucleated RBCs # 0 K/uL Sodium 144 (136-145) mmol/L Potassium 3.9 (3.5-5.1) mmol/L Chloride 108 H (98-107) mmol/L Carbon Dioxide 29.0 (21.0-32.0) mmol/L BUN 13 (7.0-18.0) mg/dL Creatinine 1.0 (0.6-1.0) mg/dL Est Cr Clr Drug Dosing 70.34 mL/min Estimated GFR (MDRD) 58.7 ml/min Glucose 185 H (74-106) mg/dL POC Glucose (60-110) mg/dL Calcium 9.3 (8.5-10.1) mg/dL Total Bilirubin 0.2 (0.2-1.0) mg/dL AST 11 L (15-37) IU/L ALT 26 (14-63) IU/L Alkaline Phosphatase 86 (46-116) U/L Total Protein 6.0 L (6.4-8.2) g/dL Albumin 3.2 L (3.4-5.0) g/dL Globulin 2.8 (2.6-4.0) g/dL Albumin/Globulin Ratio 1.1 (0.9-1.6) Lipase 57 L (73-393) U/L Urine Color YELLOW Urine Appearance CLOUDY Urine pH 5.5 (5.0-8.0) Ur Specific [place] >= 1.030 (1.001-1.035) Urine Protein 30 H (NEGATIVE) mg/dL Urine Glucose (UA) 100 H (NEGATIVE) mg/dL Urine Ketones TRACE H (NEGATIVE) mg/dL Urine Occult Blood LARGE H (NEGATIVE) Urine Nitrite POSITIVE H (NEGATIVE) Urine Bilirubin NEGATIVE (NEGATIVE) Urine Urobilinogen 0.2 (<2.0) EU/dL Ur Leukocyte Esterase TRACE H (NEGATIVE) Urine RBC 10-15 (0-2/HPF) Urine WBC 14-20 (0-5/HPF) Ur Epithelial Cells MODERATE (NONE-FEW) Calcium Oxalate Crystal MANY (NEGATIVE) Urine Bacteria 2+ H (NEGATIVE) Urine Mucus LIGHT (NONE-MOD) 03/27/19 03/27/19 03/27/19 Range/Units 00:45 02:22 06:08 WBC (4.0-11.0) K/uL RBC (4.30-5.90) M/uL Hgb (12.0-16.0) g/dL Hct (36.0-46.0) % MCV (80.0-98.0) fL MCH (27.0-32.0) pg MCHC (31.0-37.0) g/dL RDW Std Deviation (28.0-62.0) fl RDW Coeff of Angle (11.0-15.0) % Plt Count (150-400) K/uL MPV (7.40-12.00) fL Neut % (Auto) (48.0-80.0) % Lymph % (Auto) (16.0-40.0) % [place] % (Auto) (0.0-15.0) % Eos % (Auto) (0.0-7.0) % Baso % (Auto) (0.0-1.5) % Neut # (Auto) (1.4-5.7) K/uL Lymph # (Auto) (0.6-2.4) K/uL [place] # (Auto) (0.0-0.8) K/uL Eos # (Auto) (0.0-0.7) K/uL Baso # (Auto) (0.0-0.1) K/uL Nucleated RBC % /100WBC Nucleated RBCs # K/uL Sodium (136-145) mmol/L Potassium (3.5-5.1) mmol/L Chloride (98-107) mmol/L Carbon Dioxide (21.0-32.0) mmol/L BUN (7.0-18.0) mg/dL Creatinine (0.6-1.0) mg/dL Est Cr Clr Drug Dosing mL/min Estimated GFR (MDRD) ml/min Glucose (74-106) mg/dL POC Glucose 28 L 85 139 H (60-110) mg/dL Calcium (8.5-10.1) mg/dL Total Bilirubin (0.2-1.0) mg/dL AST (15-37) IU/L ALT (14-63) IU/L Alkaline Phosphatase (46-116) U/L Total Protein (6.4-8.2) g/dL Albumin (3.4-5.0) g/dL Globulin (2.6-4.0) g/dL Albumin/Globulin Ratio (0.9-1.6) Lipase (73-393) U/L Urine Color Urine Appearance Urine pH (5.0-8.0) Ur Specific [place] (1.001-1.035) Urine Protein (NEGATIVE) mg/dL Urine Glucose (UA) (NEGATIVE) mg/dL Urine Ketones (NEGATIVE) mg/dL Urine Occult Blood (NEGATIVE) Urine Nitrite (NEGATIVE) Urine Bilirubin (NEGATIVE) Urine Urobilinogen (<2.0) EU/dL Ur Leukocyte Esterase (NEGATIVE) Urine RBC (0-2/HPF) Urine WBC (0-5/HPF) Ur Epithelial Cells (NONE-FEW) Calcium Oxalate Crystal (NEGATIVE) Urine Bacteria (NEGATIVE) Urine Mucus (NONE-MOD) Result Diagrams: 03/26/19 21:40 03/26/19 21:40 Orders Last 24hrs: Active Orders 24 hr Category Date Time Status Admission Status [Patient Status] [ADT] Stat ADT 03/26/19 23:33 Active Ready for Discharge [RC] PER UNIT ROUTINE Care 03/27/19 10:04 Active ADA Diabetic [[place] [employer] Diet] [DIET Diet 03/27/19 Breakfast Active ] CULTURE URINE [RM] Stat Lab 03/26/19 21:43 Received Celecoxib [CeleBREX] Med 03/27/19 09:00 Active 200 mg PO DAILY Lisinopril [Prinivil] Med 03/27/19 09:00 Active 5 mg PO DAILY Sodium Chloride 0.9% [Normal Saline] 1,000 ml Med 03/27/19 03:30 Active IV ASDIRECTED Sodium Chloride 0.9% [Saline Flush] Med 03/26/19 21:19 Active 10 ml FLUSH ASDIRECTED PRN Sodium Chloride 0.9% [Saline Flush] Med 03/26/19 21:19 Active 2.5 ml FLUSH ASDIRECTED PRN atorvaSTATin [Lipitor] Med 03/27/19 21:00 Active 10 mg PO BEDTIME Saline Lock Insert [OM.PC] Stat Oth 03/26/19 21:19 Ordered Medication Orders Atorvastatin Calcium (Lipitor) 10 mg PO BEDTIME [facility] Celecoxib (Celebrex) 200 mg PO DAILY [facility] Last Admin: 03/27/19 09:24 Dose: 200 mg Sodium Chloride (Normal Saline) 1,000 mls @ 75 mls/hr IV ASDIRECTED [facility] Last Admin: 03/27/19 03:46 Dose: 75 mls/hr Lisinopril (Prinivil) 5 mg PO DAILY [facility] Last Admin: 03/27/19 09:24 Dose: 5 mg Sodium Chloride (Saline Flush) 10 ml FLUSH ASDIRECTED PRN PRN Reason: Keep Vein Open Last Admin: 03/26/19 21:49 Dose: 10 ml Sodium Chloride (Saline Flush) 2.5 ml FLUSH ASDIRECTED PRN PRN Reason: Keep Vein Open Last Admin: 03/26/19 21:50 Dose: 2.5 ml
[2019-03-27] MEDS ORDERED: Celecoxib 100 MG Cap PO SCH (09:00)
[2019-03-27] MEDS ORDERED: Lisinopril 5 MG Tab PO SCH (09:00)
[2019-03-27 12:17] VITALS: BP 132/64
[2019-03-27] MEDS ORDERED: atorvaSTATin 10 MG Tab PO SCH (21:00)
== END 2019-03-27 12:18 | disposition home or self-care (01) ==
LOC: MW.ED 21:17 → MW.MS 23:41
PROVIDERS: ADMIT Internal Medicine; ATTEND Internal Medicine
DX: N39.0 Urinary tract infection, site not specified (principal); R10.11 Right upper quadrant pain; E10.649 Type 1 diabetes mellitus with hypoglycemia without coma; G43.909 Migraine, unspecified, not intractable, without status migrainosus; Z90.49 Acquired absence of other specified parts of digestive tract; Z88.8 Allergy status to other drugs, medicaments and biological substances; Z88.6 Allergy status to analgesic agent; Z91.018 Allergy to other foods; Z88.0 Allergy status to penicillin; Z79.1 Long term (current) use of non-steroidal anti-inflammatories (NSAID); Z79.4 Long term (current) use of insulin
CPT/HCPCS: 36415; 76705; 80053; 81001; 82962; 83690; 85025; 87086; 87088; 87186; 96361; 96365; 96375; 99285; A9270; G0378; J0744; J2270; J2405; J7040

== ENCOUNTER 2019-11-10 22:21 | Emergency (ER) | payer BC, MEDICAID ==
[2019-11-10] MEDS ORDERED: Sodium Chloride 0.9% 2.5 ML Syringe FLUSH PRN (22:55)
[2019-11-10] MEDS ORDERED: Sodium Chloride 0.9% 10 ML Syringe FLUSH PRN (22:55)
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
[2019-11-10 23:37] LABS: BLOOD UREA NITROGEN,BUN 13 mg/dL (7.0-18.0); CARBON DIOXIDE,CO2 29.4 mmol/L (21.0-32.0); CHLORIDE,CL 103 mmol/L (98-107); GLUCOSE RANDOM 198 mg/dL (74-106); POTASSIUM,K 2.9 mmol/L (3.5-5.1); SODIUM,NA 142 mmol/L (136-145)
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
[2019-11-11 03:20] VITALS: BP 152/87; PULSE 87
== END 2019-11-11 03:02 | disposition home or self-care (01) ==
LOC: MW.ED 22:21
DX: S00.83XA Contusion of other part of head, initial encounter (principal); R91.1 Solitary pulmonary nodule; Z88.6 Allergy status to analgesic agent; Z91.041 Radiographic dye allergy status; Z91.018 Allergy to other foods; Z88.0 Allergy status to penicillin; Z88.8 Allergy status to other drugs, medicaments and biological substances; E10.9 Type 1 diabetes mellitus without complications; Z79.899 Other long term (current) drug therapy; F17.200 Nicotine dependence, unspecified, uncomplicated; V29.9XXA Motorcycle rider (driver) (passenger) injured in unspecified traffic accident, initial encounter
CPT/HCPCS: 36415; 70450; 70450-26; 71250; 71250-26; 72125; 72125-26; 74176; 74176-26; 80048; 85025; 99283; 99284-25

== ENCOUNTER 2020-02-12 14:33 | Emergency (ER) | payer SELFPAY ==
[2020-02-12 15:00] VITALS: BP 148/81; PULSE 88
--- NOTE | 2020-02-12 15:10 | EDM.PDOC ---
ED HPI GENERAL MEDICAL PROBLEM - General Chief Complaint: Genitourinary Problem Stated Complaint: PAIN AROUND KIDNEYS Time Seen by Provider: 02/12/20 14:40 Source of Information: Reports: Patient History Limitations: Reports: No Limitations - History of Present Illness INITIAL COMMENTS - FREE TEXT/NARRATIVE: HISTORY AND PHYSICAL: History of present illness: Patient is a 50-year-old female who presents to the emergency room with complaints of low back and pelvic pain. She is concerned that she has a bladder or knee infection. Patient denies any fever, chills, headache, change in vision, syncope or near syncope. Denies any chest pain, shortness of breath or cough. Denies any nausea, vomiting, diarrhea, constipation or dysuria. Has not noted any blood in urine or stool. Patient has been eating and drinking appropriately. Review of systems: As per history of present illness and below otherwise all systems reviewed and negative. Past medical history: As per history of present illness and as reviewed below otherwise noncontributory. Surgical history: As per history of present illness and as reviewed below otherwise noncontributory. Social history: See social history for further information Family history: As per history of present illness and as reviewed below otherwise noncontributory. Physical exam: General: Well-developed and well-nourished 50-year-old female. Alert and oriented. Nontoxic-appearing and in no acute distress. HEENT: Atraumatic, normocephalic, pupils equal and reactive bilaterally, negative for conjunctival pallor or scleral icterus, mucous membranes moist, TMs normal bilaterally, throat clear, neck supple, nontender, trachea midline. No drooling or trismus noted. No meningeal signs. No hot potato voice noted. Lungs: Clear to auscultation, breath sounds equal bilaterally, chest nontender. Heart: S1S2, regular rate and rhythm without overt murmur Abdomen: Soft, nondistended, nontender. Negative for masses or hepatospleno megaly. Negative for costovertebral tenderness. Pelvis: Stable nontender. Skin: Intact, warm, dry. No lesions or rashes noted. Extremities: Atraumatic, moves all extremities per self without difficulty or deficits, negative for cords or calf pain. Neurovascular unremarkable. Neuro: Awake, alert, oriented. Cranial nerves II through XII unremarkable. Cerebellum unremarkable. Motor and sensory unremarkable throughout. Exam nonfocal. Notes: After my physical evaluation the patient states that he missed eating her snack before taking her insulin and feels like her blood sugars getting low. I did give her orange juice and crackers. Shortly after I did receive a phone call from lab stating that he had a critical value of low blood sugar of 38. We will repeat her blood sugar in 30 minutes. She is alert, oriented and answering questions appropriately. Jada had an interaction with her insulin (hypoglycemia); will order Bactrim DS. CT shows cortical loss in the inferior pole of the right kidney with a renal cyst and 5 mm calcification, stable from 11/11/2019. No other abnormalities are noted. We discussed the need for follow-up with her primary care provider. Discussed monitoring her blood sugars closely as she was quite low while she was here. She states she "lives in the 50s to low 90s". She has been eating and drinking well here in the emergency department and expresses desire to be discharged. Supportive care measures were reviewed and discussed. Voices understanding and is agreeable to plan of care. Denies any further questions or concerns at this time. Diagnostics: CBC, CMP, UA, CT abd/pelvis Therapeutics: Bactrim Prescription: Bactrim Impression: UTI Plan: 1. Increase your oral fluids. Take your medications as directed. 2. Continue taking your home medications as directed. Continue to monitor your blood sugars routinely. 3. Please follow-up with your primary care provider as we discussed. 4. If your symptoms should worsen, new symptoms develop or any of the signs and symptoms we discussed should arise please return to the emergency room or call 911 (if needed). Definitive disposition and diagnosis as appropriate pending reevaluation and review of above. Right flank Pain Score (Numeric/FACES): 10 - Related Data Allergies Allergy/AdvReac Type Severity Reaction Status Date / Time acetaminophen Allergy Other Verified 02/12/20 14:53 ibuprofen Allergy Other Verified 02/12/20 14:53 Iodinated Contrast Media Allergy Hives Verified 02/12/20 14:53 mushroom Allergy Hives Verified 02/12/20 14:53 oxymetazoline Allergy Anaphylactic Verified 02/12/20 14:53 [From Afrin (oxymetazoline)] Shock Penicillins Allergy Anaphylactic Verified 02/12/20 14:53 Shock tape Allergy Rash Uncoded 02/12/20 14:53 Home Meds: Home Meds Insulin Glarg,Human.Rec.Analog [Lantus] 7 - 10 units SQ WITHMEALSANDBED 02/12/20 [History] Insulin Glulisine [Apidra Solostar] 40 units SQ BEDTIME 02/12/20 [History] Past Medical History HEENT History: Reports: None Cardiovascular History: Reports: None Respiratory History: Reports: None Gastrointestinal History: Reports: Cholelithiasis, Pancreatitis Genitourinary History: Reports: None [employer]SEM[employer]ER History: Reports: Musculoskeletal History: Reports: None Neurological History: Reports: Migraines Psychiatric History: Reports: None Endocrine/Metabolic History: Reports: Diabetes, Type I Other Endocrine/Metabolic History: chemically induced diabetes Insulin Pump Model and Social Worker Palliative Care: N/A Hematologic History: Reports: None Immunologic History: Reports: None Oncologic (Cancer) History: Reports: None Dermatologic History: Reports: None - Infectious Disease History Infectious Disease History: Reports: None - Past Surgical History HEENT Surgical History: Reports: Myringotomy w Tube(s) GI Surgical History: Reports: Appendectomy, Cholecystectomy Female Surgical History: Reports: None Social & Family History - Family History Family Medical History: Noncontributory - Caffeine Use Caffeine Use: Reports: Coffee, Energy Drinks, Tea - Recreational Drug Use Recreational Drug Use: No ED ROS GENERAL - Review of Systems Review Of Systems: Comprehensive ROS is negative, except as noted in HPI. ED EXAM, RENAL/ - Physical Exam Exam: See Below (See dictation) Course - Vital Signs Last Recorded V/S: Last Vital Signs Temp 97.9 F 02/12/20 14:56 Pulse 88 02/12/20 14:56 Resp 20 02/12/20 14:56 BP 148/81 H 02/12/20 14:56 Pulse Ox 99 02/12/20 14:56 - Orders/Labs/Meds Orders: Active Orders 24 hr Category Date Time Status Blood Glucose Check, Bedside [RC] ONETIME Care 02/12/20 15:33 Active CULTURE URINE [RM] Stat Lab 02/12/20 14:50 Received Labs: Laboratory Tests 02/12/20 02/12/20 02/12/20 Range/Units 14:50 14:57 14:57 WBC 6.12 (4.0-11.0) K/uL RBC 5.17 (4.30-5.90) M/uL Hgb 14.9 (12.0-16.0) g/dL Hct 45.3 (36.0-46.0) % MCV 87.6 (80.0-98.0) fL MCH 28.8 (27.0-32.0) pg MCHC 32.9 (31.0-37.0) g/dL RDW Std Deviation 42.0 (28.0-62.0) fl RDW Coeff of Angle 13 (11.0-15.0) % Plt Count 222 (150-400) K/uL MPV 10.80 (7.40-12.00) fL Neut % (Auto) 65.2 (48.0-80.0) % Lymph % (Auto) 24.2 (16.0-40.0) % Bonner % (Auto) 7.8 (0.0-15.0) % Eos % (Auto) 2.0 (0.0-7.0) % Baso % (Auto) 0.8 (0.0-1.5) % Neut # (Auto) 4.0 (1.4-5.7) K/uL Lymph # (Auto) 1.5 (0.6-2.4) K/uL Bonner # (Auto) 0.5 (0.0-0.8) K/uL Eos # (Auto) 0.1 (0.0-0.7) K/uL Baso # (Auto) 0.1 (0.0-0.1) K/uL Nucleated RBC % 0.0 /100WBC Nucleated RBCs # 0 K/uL Sodium 141 (136-145) mmol/L Potassium 3.5 (3.5-5.1) mmol/L Chloride 105 (98-107) mmol/L Carbon Dioxide 27.4 (21.0-32.0) mmol/L BUN 16 (7.0-18.0) mg/dL Creatinine 0.9 (0.6-1.0) mg/dL Est Cr Clr Drug Dosing 77.28 mL/min Estimated GFR (MDRD) > 60.0 ml/min Glucose 38 L* (74-106) mg/dL POC Glucose (60-110) mg/dL Calcium 8.5 (8.5-10.1) mg/dL Total Bilirubin 0.8 (0.2-1.0) mg/dL AST 13 L (15-37) IU/L ALT 24 (14-63) IU/L Alkaline Phosphatase 109 (46-116) U/L Total Protein 7.4 (6.4-8.2) g/dL Albumin 3.9 (3.4-5.0) g/dL Globulin 3.5 (2.6-4.0) g/dL Albumin/Globulin Ratio 1.1 (0.9-1.6) Urine Color YELLOW Urine Appearance CLEAR Urine pH 6.0 (5.0-8.0) Ur Specific Odon >= 1.030 (1.001-1.035) Urine Protein 100 H (NEGATIVE) mg/dL Urine Glucose (UA) NEGATIVE (NEGATIVE) mg/dL Urine Ketones TRACE H (NEGATIVE) mg/dL Urine Occult Blood MODERATE H (NEGATIVE) Urine Nitrite POSITIVE H (NEGATIVE) Urine Bilirubin NEGATIVE (NEGATIVE) Urine Urobilinogen 0.2 (<2.0) EU/dL Ur Leukocyte Esterase SMALL H (NEGATIVE) Urine RBC 3-5 (0-2/HPF) Urine WBC 20-25 (0-5/HPF) Ur Epithelial Cells RARE (NONE-FEW) Urine Bacteria 1+ H (NEGATIVE) Urinalysis Comment 02/12/20 Range/Units 15:56 WBC (4.0-11.0) K/uL RBC (4.30-5.90) M/uL Hgb (12.0-16.0) g/dL Hct (36.0-46.0) % MCV (80.0-98.0) fL MCH (27.0-32.0) pg MCHC (31.0-37.0) g/dL RDW Std Deviation (28.0-62.0) fl RDW Coeff of Angle (11.0-15.0) % Plt Count (150-400) K/uL MPV (7.40-12.00) fL Neut % (Auto) (48.0-80.0) % Lymph % (Auto) (16.0-40.0) % Bonner % (Auto) (0.0-15.0) % Eos % (Auto) (0.0-7.0) % Baso % (Auto) (0.0-1.5) % Neut # (Auto) (1.4-5.7) K/uL Lymph # (Auto) (0.6-2.4) K/uL Bonner # (Auto) (0.0-0.8) K/uL Eos # (Auto) (0.0-0.7) K/uL Baso # (Auto) (0.0-0.1) K/uL Nucleated RBC % /100WBC Nucleated RBCs # K/uL Sodium (136-145) mmol/L Potassium (3.5-5.1) mmol/L Chloride (98-107) mmol/L Carbon Dioxide (21.0-32.0) mmol/L BUN (7.0-18.0) mg/dL Creatinine (0.6-1.0) mg/dL Est Cr Clr Drug Dosing mL/min Estimated GFR (MDRD) ml/min Glucose (74-106) mg/dL POC Glucose 57 L (60-110) mg/dL Calcium (8.5-10.1) mg/dL Total Bilirubin (0.2-1.0) mg/dL AST (15-37) IU/L ALT (14-63) IU/L Alkaline Phosphatase (46-116) U/L Total Protein (6.4-8.2) g/dL Albumin (3.4-5.0) g/dL Globulin (2.6-4.0) g/dL Albumin/Globulin Ratio (0.9-1.6) Urine Color Urine Appearance Urine pH (5.0-8.0) Ur Specific Odon (1.001-1.035) Urine Protein (NEGATIVE) mg/dL Urine Glucose (UA) (NEGATIVE) mg/dL Urine Ketones (NEGATIVE) mg/dL Urine Occult Blood (NEGATIVE) Urine Nitrite (NEGATIVE) Urine Bilirubin (NEGATIVE) Urine Urobilinogen (<2.0) EU/dL Ur Leukocyte Esterase (NEGATIVE) Urine RBC (0-2/HPF) Urine WBC (0-5/HPF) Ur Epithelial Cells (NONE-FEW) Urine Bacteria (NEGATIVE) Urinalysis Comment Meds: Medications Discontinued Medications Generic Name Dose Route Start Last Admin Trade Name Freq PRN Reason Stop Dose Admin Trimethoprim/Sulfamethoxazole 1 tab 02/12/20 15:23 02/12/20 15:46 Septra Ds PO 02/12/20 15:24 1 tab ONETIME ONE Administration Departure - Departure Time of Disposition: 16:30 Disposition: Home, Self-Care 01 Clinical Impression: UTI, Urinary tract infectious disease - Discharge Information Instructions: Urinary Tract Infection, Adult, [id number] Referrals: PCP,Not In Area [Primary Care Provider] - Forms: ED Department Discharge Additional Instructions: The following information is given to patients seen in the emergency department who are being discharged to home. This information is to outline your options for follow-up care. We provide all patients seen in our emergency department with a follow-up referral. The need for follow-up, as well as the timing and circumstances, are variable depending upon the specifics of your emergency department visit. If you don't have a primary care physician on staff, we will provide you with a referral. We always advise you to contact your personal physician following an emergency department visit to inform them of the circumstance of the visit and for follow-up with them and/or the need for any referrals to a consulting specialist. The emergency department will also refer you to a specialist when appropriate. This referral assures that you have the opportunity for follow-up care with a specialist. All of these measure are taken in an effort to provide you with optimal care, which includes your follow-up. Under all circumstances we always encourage you to contact your private physician who remains a resource for coordinating your care. When calling for follow-up care, please make the office aware that this follow-up is from your recent emergency room visit. If for any reason you are refused follow-up, please contact the [facility] Emergency Department at and asked to speak to the emergency department charge nurse. [facility] [address] [place] [id number] [address] [id number] Thank you for choosing the [facility] emergency department in [place] for your medical needs today. It was a pleasure caring for you. You were seen in the emergency department for pelvic/back pain with concerns for UTI/kidney infection. 1. Increase your oral fluids. Take your medications as directed. 2. Continue taking your home medications as directed. Continue to routinely monitor your blood sugars. 3. Please follow-up with your primary care provider as we discussed. 4. If your symptoms should worsen, new symptoms develop or any of the signs and symptoms we discussed should arise please return to the emergency room or call 911 (if needed). Sepsis Event Note (ED) - Evaluation Sepsis Screening Result: No Definite Risk - Focused Exam Vital Signs: Vital Signs Temp Pulse Resp BP Pulse Ox 02/12/20 14:56 97.9 F 88 20 148/81 H 99 - My Orders Last 24 Hours: My Active Orders 02/12/20 14:50 CULTURE URINE [RM] Stat 02/12/20 15:33 Blood Glucose Check, Bedside [RC] ONETIME - Assessment/Plan Last 24 Hours: My Active Orders 02/12/20 14:50 CULTURE URINE [RM] Stat 02/12/20 15:33 Blood Glucose Check, Bedside [RC] ONETIME
[2020-02-12 15:23] LABS: BLOOD UREA NITROGEN,BUN 16 mg/dL (7.0-18.0); CARBON DIOXIDE,CO2 27.4 mmol/L (21.0-32.0); CHLORIDE,CL 105 mmol/L (98-107); POTASSIUM,K 3.5 mmol/L (3.5-5.1); SODIUM,NA 141 mmol/L (136-145)
[2020-02-12] MEDS ORDERED: Sulfamethoxazole/Trimethoprim 800-160 MG Tab PO ONE (15:23)
[2020-02-12 15:24] LABS: GLUCOSE RANDOM 38 mg/dL (74-106)
--- NOTE | 2020-02-12 16:22 | CT ---
INDICATION: Pt w/flank pain, hematuria x 2 wks. Pt allergic to contrast. HISTORY: Flank pain and hematuria. COMPARISON: CT of the abdomen and pelvis, 11/11/2019. TECHNIQUE: CT of the abdomen and pelvis. No intravenous contrast. Coronal/sagittal reconstruction images. FINDINGS: Lung bases: There is no pleural or pericardial effusion. The heart size is normal. There is no acute airspace disease. There is no basilar pneumothorax. Abdomen/pelvis: The liver morphology is non cirrhotic. Cholecystectomy. There is no perihepatic ascites. No adrenal mass. The spleen size is normal. There is no pancreatic mass, pancreatic duct dilation, or glandular atrophy. The anterior para renal space is clear. There is bilateral perinephric fat stranding. There is no drainable perinephric fluid collection. There is cortical loss present in the inferior pole of the left kidney, with a stable calcification which measures 5 mm on image 82, series 201. There is a benign, exophytic right renal cyst, measuring 13 mm on image 86. There is no hydronephrosis, hydroureter, or obstructive urolith. Pelvic calcifications are unchanged from 11/11/2019, compatible with phleboliths. There is no adnexal mass. There is no wall thickening within the small bowel or colon. There is no perienteric edema. No evidence for a small bowel or colonic obstruction. There is no pneumatosis. There is no portal venous gas. There is no pelvic sidewall lymphadenopathy. There is degenerative atherosclerotic plaque in a normal caliber abdominal aorta. The bone windows demonstrate no lytic or blastic bone lesions. There are minor degenerative changes at the endplates of the thoracolumbar spine. The vertebral body heights are maintained on sagittal reconstruction images. IMPRESSION: 1. There is no obstructive urolith, hydronephrosis, or perinephric fluid collection. 2. Cortical loss in the inferior pole of the right kidney, with an exophytic renal cyst, and 5 mm calcification, stable from 11/11/2019. 3. Cholecystectomy. Normal caliber biliary tree. 4. Uterus appears surgically absent. No adnexal mass. 5. No abdominal or pelvic lymphadenopathy by size criteria. Dictated by Jad Duke MD @ 02/12/2020 4:21:37 PM Please note that all CT scans at this facility use dose modulation, iterative reconstruction, and/or weight-based dosing when appropriate to reduce radiation dose to as low as reasonably achievable. Dictated by: Jad Duke MD @ 02/12/2020 16:21:44 (Electronically Signed)
[2020-02-12] MEDS ORDERED: Phenazopyridine 200 MG Tab PO ONE (16:31)
[2020-02-12] MEDS ORDERED: Sulfamethoxazole/Trimethoprim 800-160 MG Tab PO SCH (16:45)
--- NOTE | 2020-02-15 07:29 | PCM.SN.2 ---
- Free Text/Narrative Note: Reviewed urine culture, growing E. coli. Resistant to the prescribed Bactrim. Will prescribe nitrofurantoin 100 mg p.o. twice daily x5 days, this will be called into the pharmacy and the patient will be notified. Discontinue the Bactrim.
== END 2020-02-12 16:42 | disposition home or self-care (01) ==
LOC: MW.ED 14:33
DX: N39.0 Urinary tract infection, site not specified (principal); E10.9 Type 1 diabetes mellitus without complications; Z88.0 Allergy status to penicillin; Z88.6 Allergy status to analgesic agent; Z91.018 Allergy to other foods; Z91.09 Other allergy status, other than to drugs and biological substances; Z91.041 Radiographic dye allergy status
CPT/HCPCS: 36415; 74176; 80053; 81001; 82962; 85025; 87086; 87088; 87186; 99284; A9270